=== PATIENT | male | born 1940 ===

== ENCOUNTER 2017-05-12 15:03 | Outpatient (RCR) | payer OTHER | END 2017-05-21 | disposition home or self-care (01) | LOC: PTY 15:03 | DX: I48.2 Chronic atrial fibrillation (principal); I10 Essential (primary) hypertension; E78.5 Hyperlipidemia, unspecified; I71.01 Dissection of thoracic aorta; E78.00 Pure hypercholesterolemia, unspecified ==

== ENCOUNTER 2017-05-27 14:41 | Outpatient (RCR) | payer OTHER | END 2017-06-21 | disposition home or self-care (01) | LOC: PTY 14:41 | DX: I48.2 Chronic atrial fibrillation (principal); I10 Essential (primary) hypertension; I48.92 Unspecified atrial flutter; E78.00 Pure hypercholesterolemia, unspecified; Z98.890 Other specified postprocedural states ==